=== PATIENT | male | born 1990 | race African-American/Black ===

== ENCOUNTER 2023-08-01 10:12 | Emergency (ER) | payer OTHER ==
[2023-08-01 10:28] VITALS: BP 139/77; O2SAT 96
--- NOTE | 2023-08-01 10:52 | XRAY Report ---
PROCEDURE: Wrist 3+V LT INDICATIONS: trauma TECHNIQUE: 4 views of the wrist were acquired. COMPARISON: None. FINDINGS: Bones: No displaced fracture or dislocation. Soft tissues: No suspicious calcifications. IMPRESSION: No acute radiographic abnormality. If there is high concern for occult injury, consider repeat radiog lottie or cross-sectional imaging. Reviewed by: Clayton Garcia MD on 08/01/2023 10:50 AM PDT Approved by: Clayton Garcia MD on 08/01/2023 10:50 AM PDT Station ID: [id number]
--- NOTE | 2023-08-01 11:06 | ED Physician Documentation ---
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 Landed on an outstretched left wrist with moderate pain over the dorsal wrist and limited range of motion. No other injuries. PD PAST MEDICAL HISTORY - Past Medical History Past Medical History: No - Past Surgical History Past Surgical History: No - Present Medications Home Medications: Ambulatory Orders Medication Instructions Recorded Confirmed No Known Home Medications 08/01/23 08/01/23 - Allergies Allergies/Adverse Reactions: Allergies Allergy/AdvReac Type Severity Reaction Status Date / Time No Known Drug Allergies Allergy Verified 08/01/23 10:23 - Social History Does the pt smoke?: No Smoking Status: Never smoker Does the pt drink ETOH?: No Does the pt have substance abuse?: No - Immunizations Immunizations are current?: Yes - POLST Patient has POLST: No PD ED PE NORMAL - Vitals Vital signs reviewed: Yes - General General: Alert and oriented X 3, No acute distress - Extremities Extremities: Other (Minimal tenderness over the left wrist with decreased range of motion due to pain. No deformity. No snuffbox tenderness. No tenderness over the left elbow or throughout the left hand. Normal neurovascular function in the left hand.) - Neuro Neuro: Alert and oriented X 3, Normal speech Results - Vitals Vitals: Vital Signs - 24 hr 08/01/23 10:20 Temperature 36.4 C L Heart Rate 63 Respiratory 20 Rate Blood Pressure 139/77 H O2 Saturation 96 Oxygen O2 Source Room air - Rads (name of study) 4 view x-ray left wrist negative Relevant Findings:: Final report received, EMP independent interpretation of test PD Medical Decision Making - ED course ED course: 33-year-old gentleman with left wrist sprain, negative imaging. Placed in a Velcro splint and follow-up precautions given if not improving. 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 Tylenol and/or ibuprofen as needed for pain. You can wear the splint for comfort and also ice it 5 minutes on 30 minutes off as well.
== END 2023-08-01 11:17 | disposition home or self-care (01) ==
LOC: ED 10:12
DX: S63.502A Unspecified sprain of left wrist, initial encounter (principal); V29.39XA Other motorcycle (driver) (passenger) injured in unspecified nontraffic accident, initial encounter; Y93.55 Activity, bike riding; Y99.8 Other external cause status
CPT/HCPCS: 99283